=== PATIENT | female | born 1980 | race Caucasian/White ===

== ENCOUNTER 2018-01-05 16:19 | Emergency (ER) | payer OTHER ==
[~2018-01-05] VITALS: Ht 170.2 cm; Wt 108.9 kg
[2018-01-05] MEDS ORDERED: SYNTHROID75 MCG (16:28)
[2018-01-05] MEDS ORDERED: PRENATAL MULTI (16:29)
[2018-01-05] MEDS ORDERED: ZOFRAN4 MG (16:29)
[2018-01-05] MEDS ORDERED: PEPCID40 MG (16:29)
[2018-01-05] MEDS ORDERED: DHA (16:29)
[2018-01-05] MEDS ORDERED: VALTREX1000 MG (16:29)
== END 2018-01-05 22:30 | disposition home or self-care (01) ==
LOC: ER 16:19 → EDBD 17:04 → ER 17:04
DX: O26.892 Other specified pregnancy related conditions, second trimester (principal); R10.2 Pelvic and perineal pain; Z34.82 Encounter for supervision of other normal pregnancy, second trimester

== ENCOUNTER 2018-05-11 13:00 | Inpatient (IN) | payer OTHER ==
[~2018-05-11] VITALS: Ht 170.2 cm; Wt 117.0 kg
[~2018-05-11 13:00] MED LIST: DHA; PEPCID40 MG; PRENATAL MULTI; SYNTHROID75 MCG; VALTREX1000 MG; ZOFRAN4 MG
== END 2018-06-05 09:58 | disposition home or self-care (01) | DRG 788 ==
LOC: LDR 06-02 09:07 → OB/GYN 06-02 09:07 → LDR 06-02 09:44 → MEDJ 06-02 10:30 → LDR 06-02 10:33 → O/R 06-02 21:30 → OB/GYN 06-02 22:33 → LDR 06-05 13:00
PROVIDERS: ADMIT Obstetrics & Gynecology
PROC: 3E033VJ Introduction of Other Hormone into Peripheral Vein, Percutaneous Approach (ICD-10-PCS; 2018-06-02)
PROC: 4A1HXCZ Monitoring of Products of Conception, Cardiac Rate, External Approach (ICD-10-PCS; 2018-06-02)
PROC: 10D00Z1 Extraction of Products of Conception, Low, Open Approach (ICD-10-PCS; principal; 2018-06-02 20:15)
DX: O61.0 Failed medical induction of labor (principal); Z3A.39 39 weeks gestation of pregnancy; Z37.0 Single live birth